=== PATIENT | male | born 1995 | race Caucasian/White ===

== ENCOUNTER 2018-12-01 19:29 | Emergency (ER) | payer BC, OTHER ==
[2018-12-01 20:00] VITALS: BP 131/81; PULSE 95
--- NOTE | 2018-12-01 20:24 | EDM.PDOC ---
ED HPI GENERAL MEDICAL PROBLEM - General Chief Complaint: Skin Complaint Stated Complaint: LEFT THUMB FISH HOOK Time Seen by Provider: 12/01/18 20:35 Source of Information: Reports: Patient History Limitations: Reports: No Limitations - History of Present Illness INITIAL COMMENTS - FREE TEXT/NARRATIVE: 23-year-old male with a fish hook embedded into the pulp of his middle finger on the left hand. Onset: Sudden Duration: Hour(s): (About 2 hours ago) Location: Reports: Upper Extremity, Left Associated Symptoms: Reports: No Other Symptoms Right Finger-Middle Pain Score (Numeric/FACES): 2 - Related Data Allergies Allergy/AdvReac Type Severity Reaction Status Date / Time No Known Allergies Allergy Verified 12/01/18 20:18 Home Meds: Home Meds NK [No Known Home Meds] 10/29/14 [History] Past Medical History - Past Health History Medical/Surgical History: Denies Medical/Surgical History Respiratory History: Reports: Asthma Musculoskeletal History: Reports: Fracture - Past Surgical History Musculoskeletal Surgical History: Reports: Other (See Below) Other Musculoskeletal Surgeries/Procedures:: wrist surgery Social & Family History - Tobacco Use Smoking Status *Q: Never Smoker - Caffeine Use Caffeine Use: Reports: None - Recreational Drug Use Recreational Drug Use: No ED ROS GENERAL - Review of Systems Review Of Systems: See Below Constitutional: Denies: Fever, Chills Respiratory: Denies: Shortness of Breath Cardiovascular: Denies: Chest Pain GI/Abdominal: Denies: Nausea, Vomiting ED EXAM, SKIN/RASH Exam: See Below Exam Limited By: No Limitations General Appearance: Alert, No Apparent Distress Respiratory/Chest: No Respiratory Distress Extremities: Other (Left hand shows an embedded genaro into the pulp of the distal middle finger.) Course - Vital Signs Last Recorded V/S: Last Vital Signs Temp 98.6 F 12/01/18 20:20 Pulse 95 12/01/18 20:20 Resp 20 12/01/18 20:20 BP 131/81 12/01/18 20:20 Pulse Ox 97 12/01/18 20:20 - Orders/Labs/Meds Meds: Medications Discontinued Medications Generic Name Dose Route Start Last Admin Trade Name Freq PRN Reason Stop Dose Admin Lidocaine HCl 5 ml 12/01/18 20:24 12/01/18 20:31 Xylocaine-Mpf 1% INJECT 08/03/19 20:25 5 ml ONETIME ONE Administration - Re-Assessments/Exams Free Text/Narrative Re-Assessment/Exam: 12/01/18 22:23 The area was infiltrated with 1% lidocaine, and using countertraction the hook was removed. It was scrubbed thoroughly with alcohol, covered with bacitracin and a Band-Aid. Departure - Departure Time of Disposition: 21:08 Disposition: Home, Self-Care 01 Clinical Impression: [place] injury to finger Qualifiers: Encounter type: initial encounter Laterality: left Qualified Code(s): S69.92XA - Unspecified injury of left wrist, hand and finger(s), initial encounter - Discharge Information Instructions: Puncture Wound, [id number] Referrals: PCP,None [Primary Care Provider] - Forms: ED Department Discharge Care Plan Goals: Keep wound covered and clean while healing. Recheck if concerns of infection or not healing satisfactorily.
== END 2018-12-01 21:09 | disposition home or self-care (01) ==
LOC: JP.ED 19:29
DX: S60.453A Superficial foreign body of left middle finger, initial encounter (principal); W45.8XXA Other foreign body or object entering through skin, initial encounter
CPT/HCPCS: 99283; J2001